=== PATIENT | female | born 1990 | race Asian ===

== ENCOUNTER 2018-02-17 16:52 | Emergency (ER) | payer OTHER ==
[~2018-02-17] VITALS: Ht 165.1 cm; Wt 56.7 kg
[2018-02-17 16:55] VITALS: BP 88/51; TEMP 98.6
== END 2018-02-17 17:22 | disposition home or self-care (01) ==
LOC: ED 16:52
DX: H10.13 Acute atopic conjunctivitis, bilateral (principal)
CPT/HCPCS: 99282

== ENCOUNTER 2018-02-19 11:14 | Emergency (ER) | payer OTHER ==
[~2018-02-19] VITALS: Ht 165.1 cm; Wt 56.7 kg
[2018-02-19 11:32] VITALS: TEMP 97.7
[2018-02-19 12:15] VITALS: BP 110/68
== END 2018-02-19 12:15 | disposition home or self-care (01) ==
LOC: ED 11:14
DX: H10.9 Unspecified conjunctivitis (principal)
CPT/HCPCS: 99282

== ENCOUNTER 2019-05-07 15:12 | Emergency (ER) | payer OTHER ==
[~2019-05-07] VITALS: Ht 165.1 cm; Wt 56.7 kg
[2019-05-07 15:43] VITALS: TEMP 97.7
[2019-05-07 16:38] LABS: PLATELET COUNT 138 K/uL (152-353)
[2019-05-07 16:47] LABS: POTASSIUM 4.2 mmol/L (3.6-5.2)
[2019-05-07 17:45] VITALS: BP 116/74
== END 2019-05-07 17:46 | disposition home or self-care (01) ==
LOC: ED 15:12
PROVIDERS: Family Medicine
DX: N39.0 Urinary tract infection, site not specified (principal); F19.10 Other psychoactive substance abuse, uncomplicated; R11.2 Nausea with vomiting, unspecified
CPT/HCPCS: 36415; 80053; 80307; 81000; 81025; 85027; 87077; 87086; 87088; 87185; 87186; 87502; 96360; 96361; 96372; 96374; 99284; J2405

== ENCOUNTER 2020-05-09 22:15 | Emergency (ER) | payer OTHER ==
[~2020-05-09] VITALS: Ht 165.1 cm; Wt 61.2 kg
[2020-05-09 23:47] VITALS: BP 112/48; TEMP 98.4
== END 2020-05-09 23:47 | disposition home or self-care (01) ==
LOC: ED 22:15
PROC: 2W3RX1Z Immobilization of Left Lower Leg using Splint (ICD-10-PCS; principal; 2020-05-09)
DX: S92.352A Displaced fracture of fifth metatarsal bone, left foot, initial encounter for closed fracture (principal); X50.9XXA Other and unspecified overexertion or strenuous movements or postures, initial encounter; Y93.67 Activity, basketball; Y92.89 Other specified places as the place of occurrence of the external cause
CPT/HCPCS: 99283

== ENCOUNTER 2020-06-14 11:11 | Emergency (ER) | payer OTHER | END 2020-06-14 11:25 | disposition home or self-care (01) | LOC: ED 11:25 | DX: Z03.818 Encounter for observation for suspected exposure to other biological agents ruled out (principal) | CPT/HCPCS: 99281 ==

== ENCOUNTER 2020-07-14 18:38 | Emergency (ER) | payer OTHER ==
[~2020-07-14] VITALS: Ht 165.1 cm; Wt 59.4 kg
[2020-07-14 18:57] VITALS: TEMP 98.9
[2020-07-14 19:27] LABS: PLATELET COUNT 148 K/uL (152-353)
[2020-07-14 19:43] LABS: POTASSIUM 3.6 mmol/L (3.6-5.2); SODIUM 140 mmol/L (136-145)
[2020-07-14 19:47] LABS: PARTIAL THROMBOPLASTIN TIME 27.2 SECONDS (24.5-33.6)
[2020-07-14 20:15] VITALS: BP 100/68
== END 2020-07-14 20:15 | disposition home or self-care (01) ==
LOC: ED 18:38
PROVIDERS: Hospitalist
DX: J06.9 Acute upper respiratory infection, unspecified (principal); J40 Bronchitis, not specified as acute or chronic; R07.89 Other chest pain; S39.012A Strain of muscle, fascia and tendon of lower back, initial encounter; V49.9XXA Car occupant (driver) (passenger) injured in unspecified traffic accident, initial encounter; Y92.89 Other specified places as the place of occurrence of the external cause
CPT/HCPCS: 80053; 81000; 82550; 83880; 84484; 85027; 85610; 85730; 87086; 87088; 87651; 93005; 96365; 96375; 99284; J0696; J1100; J1885